=== PATIENT | female | born 1990 | race Caucasian/White ===

== ENCOUNTER 2021-09-18 12:41 | Emergency (ER) | payer SELFPAY ==
[~2021-09-18] VITALS: Ht 152.4 cm; Wt 99.0 kg
--- NOTE | 2021-09-18 13:29 | PHYS DOC ---
Past History Past Surgical History: , Tubal ligation Alcohol Use: None Adult General Chief Complaint Chief Complaint: ABDOMINAL PAIN [facility] HPI Patient is a 30 year old female who presents with right upper quadrant pain. Patient reports she woke up this morning at 0600 with right upper quadrant pain. She reports that the pain comes and goes but is sharp in nature. She has not had this type of pain in the past. She says that she ate pizza rolls for dinner last night. She denies any recent sick contacts, fever, chills, shortness of breath, and pain in her chest. Patient reports that she had a normal bowel movement this morning. She is up to date on all of her vaccinations except she is not vaccinated against COVID-19. Review of Systems Review of Systems Fourteen body systems of review of systems have been reviewed. See HPI for perti nent positives and negative responses, other morales all other systems are negative, non-pertinent or non-contributory Allergies Allergies Allergies Coded Allergies Type Severity Reaction Last Updated Verified No Known Drug Allergies 09/18/21 No Physical Exam Physical Exam Constitutional: Well developed, well nourished, no acute distress, non-toxic appearance. HENT: Normocephalic, atraumatic, bilateral external ears normal, oropharynx moist, no oral exudates, nose normal. Eyes: PERRLA, EOMI, conjunctiva normal, no discharge. Neck: Normal range of motion, no tenderness, supple, no stridor. Cardiovascular: Heart rate regular, sinus rhythm, no murmurs rubs or gallops Lungs & Thorax: Bilateral breath sounds clear to auscultation Abdomen: Bowel sounds normal, soft, tenderness to right upper quadrant with guarding present, no rebound, no masses, no pulsatile masses. Nonsurgical abdomen, no peritoneal signs Skin: Warm, dry, no erythema, no rash. Back: No tenderness, no CVA tenderness. Extremities: No tenderness, no cyanosis, no clubbing, ROM intact, no edema. Neurologic: Alert and oriented X 3, grossly normal motor & sensory function, no focal deficits noted. Psychologic: Anxious affect and mood Current Patient Data Vital Signs Vital Signs Date Time Temp Pulse Resp B/P (MAP) Pulse Ox O2 Delivery O2 Flow Rate FiO2 09/18/21 12:59 98.5 79 16 154/74 (100) 99 Room Air Lab Results Laboratory Tests Test 09/18/21 13:42 09/18/21 13:45 09/18/21 13:52 Urine Collection Type Clean catch Urine Color Yellow Urine Clarity Clear Urine pH 7.0 Urine Specific [place] 1.025 Urine Protein Neg Urine Glucose (UA) Neg mg/dL Urine Ketones (Stick) Neg mg/dL Urine Blood Neg Urine Nitrite Neg Urine Bilirubin Neg Urine Urobilinogen Dipstick 0.2 mg/dL Urine Leukocyte Esterase Neg Urine RBC 0 /HPF Urine WBC 0 /HPF Urine Bacteria 0 /HPF Bedside Urine HCG, Qualitative hcg negative White Blood Count 14.5 x10^3/uL Red Blood Count 4.65 x10^6/uL Hemoglobin 13.0 g/dL Hematocrit 39.6 % Mean Corpuscular Volume 85 fL Mean Corpuscular Hemoglobin 28 pg Mean Corpuscular Hemoglobin Concent 33 g/dL Red Cell Distribution Width 12.9 % Platelet Count 303 x10^3/uL Neutrophils (%) (Auto) 83 % Lymphocytes (%) (Auto) 12 % Monocytes (%) (Auto) 4 % Eosinophils (%) (Auto) 0 % Basophils (%) (Auto) 0 % Neutrophils # (Auto) 12.0 x10^3uL Lymphocytes # (Auto) 1.8 x10^3/uL Monocytes # (Auto) 0.6 x10^3/uL Eosinophils # (Auto) 0.0 x10^3/uL Basophils # (Auto) 0.0 x10^3/uL Sodium Level 138 mmol/L Potassium Level 4.1 mmol/L Chloride Level 103 mmol/L Carbon Dioxide Level 25 mmol/L Anion Gap 10 Blood Urea Nitrogen 7 mg/dL Creatinine 0.7 mg/dL Estimated GFR (Cockcroft-Gault) 99.6 BUN/Creatinine Ratio 10 Glucose Level 122 mg/dL Calcium Level 8.9 mg/dL Total Bilirubin 0.5 mg/dL Aspartate Amino Transf (AST/SGOT) 17 U/L Alanine Aminotransferase (ALT/SGPT) 36 U/L Alkaline Phosphatase 71 U/L Total Protein 8.1 g/dL Albumin 3.8 g/dL Albumin/Globulin Ratio 0.9 Lipase 79 U/L Current Medications Medications (Trade) Dose Ordered Sig/Cheryl Route PRN Reason Start Time Stop Time Status Last Admin Dose Admin Sodium Chloride 1,000 ml @ 1,000 mls/hr 1X ONCE IV 09/18/21 13:30 09/18/21 14:29 DC 09/18/21 14:10 Acetaminophen (Tylenol) 1,000 mg 1X ONCE PO 09/18/21 13:30 09/18/21 13:32 DC 09/18/21 14:10 Morphine Sulfate (Morphine 4mg Syringe) 4 mg 1X ONCE IV 09/18/21 13:45 09/18/21 13:46 DC 09/18/21 14:10 Ondansetron HCl (Zofran) 4 mg 1X ONCE IVP 09/18/21 13:45 09/18/21 13:46 DC 09/18/21 14:10 Iohexol (Omnipaque 300 Mg/ml) 75 ml 1X ONCE IV 09/18/21 13:45 09/18/21 13:46 DC 09/18/21 13:54 Info (Do NOT chart on this entry -- for MONITORING) 1 each PRN DAILY PRN MC SEE COMMENTS 09/18/21 13:45 09/20/21 13:44 Ciprofloxacin (Cipro) 500 mg 1X ONCE PO 09/18/21 14:45 09/18/21 14:46 UNV Metronidazole (Flagyl) 500 mg 1X ONCE PO 09/18/21 14:45 09/18/21 14:46 UNV EKG EKG [] Radiology/Procedures Radiology/Procedures Examination: CT of the abdomen pelvis with IV contrast HISTORY: History of right upper quadrant abdominal pain COMPARISON: None available TECHNIQUE: Axial CT images of the abdomen pelvis were performed with IV contrast. Coronal and sagittal reformats are performed Exposure: One or more of the following individualized dose reduction techniques were utilized for this examination: 1. Automated exposure control 2. Adjustment of the mA and/or kV according to patient size 3. Use of iterative reconstruction technique FINDINGS: The bibasilar lungs are clear. No evidence of free air identified in the abdomen Mild degree attenuation noted in the liver likely hepatic steatosis. The spleen, adrenals grossly appears unremarkable. The gallbladder is mildly distended. The stomach is mildly distended with visualized pancreas grossly appears unremarkable. The small bowel is nondilated. Mild thickened appearance of the wall of the colon involving the transverse colon, descending colon and sigmoid colon with surrounding fat stranding. There is heterogeneous fat and soft tissue containing density identified in the right adnexa measuring 4.9 cm likely right ovarian dermoid. The bilateral ki dneys enhance symmetrically. There is 3 mm calculus identified in the right kidney. Small 3 mm cyst left kidney identified. No evidence of lytic bony destructive lesion. IMPRESSION: 1. Mild thickened appearance of the wall of the colon involving the transverse colon, descending colon and sigmoid colon with surrounding fat stranding likely colitis. 2. 4.9 cm heterogeneous fat and soft tissue containing density identified in the right adnexa likely right ovarian dermoid. Follow-up ultrasound is recommend ed. 3. Hepatic steatosis. 4. 3 mm calculus identified in the right kidney. Electronically signed by: Brenden Prince MD (09/18/2021 2:14 PM) [id number] Heart Score C/O Chest Pain: No Risk Factors: Risk Factors: DM, Current or recent (<one month) smoker, HTN, HLP, family history of CAD, obesity. Risk Scores: Risk Factors: DM, Current or recent (<one month) smoker, HTN, HLP, family history of CAD, obesity. Course & Med Decision Making Course & Med Decision Making ABCs unremarkable HPI physical exam and comprehensive ER work-up nonconcerning for any emergent or surgical issues I discussed most likely diagnosis of colitis, antibiotics and supportive care with close PCP and GI follow-up advised Also disclosed finding of right ovarian cyst, this is a known finding for patient. Outpatient follow-up advised I discussed this might be an acute presentation of more concerning pathology such as cholecystitis or other potential intra-abdominal abnormality but based on work-up today no indication for further ER work-up or hospitalization Dragon Disclaimer Dragon Disclaimer This electronic medical record was generated, in whole or in part, using a voice recognition dictation system. Departure Departure: Impression: Primary Impression: Colitis Additional Impression: Right ovarian cyst Disposition: HOME / SELF CARE / HOMELESS Condition: STABLE Referrals: PCP,NO (PCP) Patient Instructions: Colitis Additional Instructions: As discussed prior to ER departure, your comprehensive ER work-up was nonconcerning for any emergent or surgical issues. There were findings of colitis which is likely causing your pain. There are multiple causes for this and as such, joint decision was made to start antibiotics to treat infectious causes. You are started on ciprofloxacin and metronidazole which you should take as scheduled to completion. Your symptoms are highly: Concerning for gallbladder pathology and so, we need to discuss need for outpatient ultrasound of your right upper quadrant of abdomen with your primary care physician. In addition, it was disclosed about your likely benign right ovarian cyst that should also get followed up with outpatient ultrasound with primary care physician. If any concerning signs or symptoms present prior to ER departure please do not hesitate to come back for repeat evaluation. It was a pleasure to take care of you and I wish you the best going forward Scripts Ciprofloxacin Hcl (CIPROFLOXACIN HCL) 500 Mg Tablet 1 TAB PO BID for colitis, #14 TAB Prov: JOHNSON CALLE DO 09/18/21 Metronidazole (METRONIDAZOLE) 500 Mg Tablet 1 TAB PO TID for colitis for 10 Days, #30 TAB 0 Refills Prov: JOHNSON CALLE DO 09/18/21 Problem Qualifiers JOHNSON CALLE DO Sep 18, 2021 13:29
[2021-09-18] MEDS ORDERED: IV NORMAL SALINE 1,000ML 1,000 ML IV ONE (13:30)
[2021-09-18] MEDS ORDERED: ACETAMINOPHEN 500 MG TABLET PO ONE (13:30)
[2021-09-18] MEDS ORDERED: CONTRAST GIVEN. MC PRN (13:45)
[2021-09-18] MEDS ORDERED: MORPHINE SULFATE 4 MG/ML DISP.SYRIN. IV ONE (13:45)
[2021-09-18] MEDS ORDERED: ONDANSETRON PF 4 MG/2 ML VIAL. IVP ONE (13:45)
[2021-09-18] MEDS ORDERED: IOHEXOL 300 MG/ML 75 ML VIAL. IV ONE (13:45)
[2021-09-18 14:15] LABS: BILIRUBIN,URINE NEG (NEG); CLARITY,URINE CLEAR; COLOR,URINE YELLOW; GLUCOSE,URINE NEG (NEG); NITRITE,URINE NEG (NEG); UROBILINOGEN,URINE 0.2 mg/dL (0.2 mg/dL)
[2021-09-18 14:16] LABS: BACTERIA,URINE 0 /HPF (0-FEW); RBC,URINE 0 /HPF (0-2); WBC,URINE 0 /HPF (0-4)
--- NOTE | 2021-09-18 14:16 | RAD ---
Examination: CT of the abdomen pelvis with IV contrast HISTORY: History of right upper quadrant abdominal pain COMPARISON: None available TECHNIQUE: Axial CT images of the abdomen pelvis were performed with IV contrast. Coronal and sagitta l reformats are performed Exposure: One or more of the following individualized dose reduction techniques were utilized for thi s examination: 1. Automated exposure control 2. Adjustment of the mA and/or kV according to patient size 3. Use of iterative reconstruction technique FINDINGS: The bibasilar lungs are clear. No evidence of free air identified in the abdomen Mild degree attenuation noted in the liver likely hepatic steatosis. The spleen, adrenals grossly na ears unremarkable. The gallbladder is mildly distended. The stomach is mildly distended with visualiz ed pancreas grossly appears unremarkable. The small bowel is nondilated. Mild thickened appearance of the wall of the colon involving the transverse colon, descending colon and sigmoid colon with surrou nding fat stranding. There is heterogeneous fat and soft tissue containing density identified in the right adnexa measurin g 4.9 cm likely right ovarian dermoid. The bilateral kidneys enhance symmetrically. There is 3 mm darcy culus identified in the right kidney. Small 3 mm cyst left kidney identified. No evidence of lytic [place] destructive lesion. IMPRESSION: 1. Mild thickened appearance of the wall of the colon involving the transverse colon, descending col on and sigmoid colon with surrounding fat stranding likely colitis. 2. 4.9 cm heterogeneous fat and soft tissue containing density identified in the right adnexa likely right ovarian dermoid. Follow-up ultrasound is recommended. 3. Hepatic steatosis. 4. 3 mm calculus identified in the right kidney. Electronically signed by: Brenden Prince MD (09/18/2021 2:14 PM) [id number]
[2021-09-18 14:19] LABS: BASO % 0 % (0-3); EOS % 0 % (0-3); HEMATOCRIT 39.6 % (36.0-47.0); LYMPH # 1.8 x10^3/uL (1.0-4.8); LYMPH % 12 % (24-48); MEAN CORPUSCULAR HEMOGLOBIN 28 pg (25-35); MEAN CORPUSCULAR HGB CONC 33 g/dL (31-37); MEAN CORPUSCULAR VOLUME 85 fL (79-100); MONO # 0.6 x10^3/uL (0.0-1.1); MONO % 4 % (0-9); NEUT % 83 % (31-73); PLATELET COUNT 303 x10^3/uL (140-400); RED BLOOD COUNT 4.65 x10^6/uL (3.50-5.40); RED CELL DISTRIBUTION WIDTH 12.9 % (11.5-14.5); WHITE BLOOD COUNT 14.5 x10^3/uL (4.0-11.0)
[2021-09-18 14:25] LABS: CALCIUM 8.9 mg/dL (8.5-10.1); CREATININE 0.7 mg/dL (0.6-1.0); GFR 99.6; POTASSIUM 4.1 mmol/L (3.5-5.1)
[2021-09-18 14:31] LABS: ALBUMIN 3.8 g/dL (3.4-5.0); ALBUMIN/GLOBULIN RATIO 0.9 (1.0-1.7); TOTAL BILIRUBIN 0.5 mg/dL (0.2-1.0); TOTAL PROTEIN 8.1 g/dL (6.4-8.2)
[2021-09-18] MEDS ORDERED: METR-34 PO (14:44)
[2021-09-18] MEDS ORDERED: CIPR500T2 PO (14:45)
[2021-09-18] MEDS ORDERED: metroNIDAZOLE 500 MG TABLET PO ONE (14:45)
[2021-09-18] MEDS ORDERED: CIPROFLOXACIN HCL 500 MG TABLET PO ONE (14:45)
[2021-09-18 15:06] VITALS: BP 148/70
== END 2021-09-18 15:07 | disposition home or self-care (01) ==
LOC: ER 12:41
DX: K52.9 Noninfective gastroenteritis and colitis, unspecified (principal); N83.201 Unspecified ovarian cyst, right side; Z98.890 Other specified postprocedural states; Z98.51 Tubal ligation status
CPT/HCPCS: 36415; 74177; 80053; 81001; 81025; 83690; 85025; 96361; 96374; 96375; 99285; J2270; J2405; J7030; Q9967